=== PATIENT | female | born 1990 ===

== ENCOUNTER 2023-12-23 18:20 | Outpatient (REF) | payer MEDICAID, SELFPAY | END 2023-12-23 18:21 | disposition home or self-care (01) | LOC: HO.HHCLNP 18:20 | PROVIDERS: Visit Provider Internal Medicine | DX: N91.2 Amenorrhea, unspecified (principal) | CPT/HCPCS: 87086 ==

== ENCOUNTER 2024-05-30 14:04 | Outpatient (REF) | payer MEDICAID, SELFPAY ==
--- NOTE | ~2024-05-30 | US_ITS ---
EXAMINATION: US EXTREMITY, NONVASCULAR CLINICAL INFORMATION: Left axillary mass, suspect lipoma. Patient complains of discomfort, has felt area of concern for months, no change in size. COMPARISON: None available. TECHNIQUE: Targeted ultrasound images were obtained by the superintendent radio communications of the area of concern as indicated by the patient in the left axilla. Radiologist was not in attendance. Images were later provided for interpretation. FINDINGS: No discrete mass, adenopathy or fluid collection identified in the area of concern indicated by the patient in the left axilla. US/US extremity nonvascular IMPRESSION: No discrete mass, adenopathy or fluid collection identified in the area of concern indicated by the patient in the left axilla. Decisions regarding further imaging, treatment or biopsy should be based on the clinical exam, as not all abnormalities are detectable on ultrasound studies.
== END 2024-05-30 14:05 | disposition home or self-care (01) ==
LOC: HO.US 14:04
PROVIDERS: PCP Internal Medicine; Visit Provider Internal Medicine
DX: R22.32 Localized swelling, mass and lump, left upper limb (principal)
CPT/HCPCS: 76882

== ENCOUNTER 2024-06-01 10:26 | Outpatient (REF) | payer MEDICAID, SELFPAY ==
[2024-06-01 13:59] LABS: MANUAL DIFF FLAG NO
[2024-06-01 14:08] LABS: Basophils Percent Auto 0.2 % (0-2); Eosinophils Absolute Auto 0.4 X10*3/uL (0.0-0.4); Eosinophils Percent Auto 7.2 % (0-4); Hematocrit 36.9 % (37.0-47.0); Hemoglobin 11.2 g/dl (12.0-16.0); Imm Gran Abs Auto 0.02 X10*3/uL (0.00-0.03); Imm Gran Pct Auto 0.4 % (0.0-0.4); Lymphocytes Absolute Auto 2.2 X10*3/uL (1.2-4.9); Lymphocytes Percent Auto 40.2 % (20-40); Mean Corpuscular HGB Conc 30.4 g/dl (31.0-35.0); Mean Corpuscular Hemoglobin 26.7 pg (27.0-33.0); Mean Corpuscular Volume 88.1 fL (80.0-98.0); Mean Platelet Volume 10.3 fL (9.4-12.3); Monocytes Absolute Auto 0.2 X10*3/uL (0.1-1.2); Monocytes Percent Auto 4.3 % (2-11); Neutrophils Absolute Auto 2.7 x10*3/uL (2.0-8.3); Neutrophils Percent Auto 47.7 % (45-73); Platelet Count 170 X10*3/uL (160-400); Red Blood Count 4.19 X10*6/uL (4.20-5.50); Red Cell Distribution Width 15.5 % (11.0-16.0); White Blood Count 5.6 X10*3/uL (4.8-10.8)
[2024-06-01 14:27] LABS: Alanine Aminotransferase 18 U/L (0-31); Albumin Level 4.2 g/dL (3.5-5.0); Alkaline Phosphatase 57 U/L (39-117); Anion Gap 13 (12-20); Aspartate Amino Transferase 20 U/L (5-31); Bilirubin Total 0.4 mg/dL (0.0-1.0); Blood Urea Nitrogen 9 mg/dL (9-16); Calcium 9.2 mg/dL (8.4-10.2); Carbon Dioxide 22 mmol/L (22-29); Chloride 110 mmol/L (96-108); Cholesterol 154 mg/dL (<200); Estimated Glomerular Filt Rate > 60; Glucose Random 115 mg/dL (60-115); HDL Cholesterol 56 mg/dL (>40); LDL Cholesterol Calculated 80 mg/dL (<100); Potassium 3.8 mmol/L (3.3-5.1); Sodium 141 mmol/L (135-145); Total Protein 6.9 g/dL (6.5-8.0); Triglycerides 90 mg/dL (<150)
[2024-06-01 14:47] LABS: TSH reflex Free T4 1.21 uIU/mL (0.32-4.0)
== END 2024-06-01 10:27 | disposition home or self-care (01) ==
LOC: HO.CHCLDS 10:26
PROVIDERS: Visit Provider Internal Medicine
DX: E66.01 Morbid (severe) obesity due to excess calories (principal); Z68.41 Body mass index [BMI] 40.0-44.9, adult
CPT/HCPCS: 36415; 80053; 80061; 84443; 85025